=== PATIENT | female | born 1965 | race Two or more races ===

== ENCOUNTER 2019-12-30 | Emergency (ER) | payer OTHER | END 2019-12-31 00:07 | disposition home or self-care (01) | CPT/HCPCS: 29515; 80306; 82075; 99284 ==

== ENCOUNTER 2020-01-02 23:01 | Inpatient (IN) | payer MEDICAID, OTHER ==
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
[2020-01-03 00:07] LABS: Amphetamine Screen,Urine Not Detected (NotDetected); Barbiturate Screen,Urine Not Detected (NotDetected); Benzodiazepines Screen,Urine Not Detected (NotDetected); Cocaine Screen,Urine Not Detected (NotDetected); Methadone Screen, Urine Not Detected (NotDetected); Opiate Screen,Urine Not Detected (NotDetected); Oxycodone Screen, Urine Not Detected (NotDetected); Phencyclidine Screen,Urine Not Detected (NotDetected); Tricyclic Antidepressant,Urine Not Detected (NotDetected); Urn Cannabinoid Scrn Detected (NotDetected)
[2020-01-03] MEDS ORDERED: MAGNESIUM HYDROXIDE 2,400 MG/10 ML CUP PO PRN (02:46)
[2020-01-03] MEDS ORDERED: ZIPRASIDONE 20 MG VIAL IM PRN (02:46)
[2020-01-03] MEDS ORDERED: MAG HYDROX/AL HYDROX/SIMETH 30 ML CUP PO PRN (02:46)
[2020-01-03] MEDS ORDERED: LORazepam 1 MG TAB PO PRN (02:46)
[2020-01-03] MEDS: ACETAMINOPHEN TAB 325 MG TAB PO PRN ×3 (05:03→20:48)
[2020-01-03 09:33] LABS: Basophils # (A) 0.1 k/uL (0-0.2); Basophils % (A) 1 %; Eosinophils # (A) 0.4 k/uL (0-0.7); Eosinophils % (A) 4 %; HCT 38.3 % (34.0-46.0); HGB 12.4 gm/dL (11.4-16.0); Lymphocytes % (A) 30 %; MCH 32.2 pg (25.0-35.0); MCHC 32.4 g/dL (31.0-37.0); MCV 99.4 fL (80.0-100.0); Mean Platelet Volume 7.7; Monocytes # (A) 0.5 k/uL (0-1.0); Monocytes % (A) 5 %; Neutrophils # (A) 5.8 k/uL (1.3-7.7); Neutrophils % (A) 58 %; Platelet Count 340 k/uL (150-450); RBC 3.85 m/uL (3.80-5.40); RDW 12.1 % (11.5-15.5)
[2020-01-03 09:42] LABS: Albumin 4.3 g/dL (3.5-5.0); Calcium 9.5 mg/dL (8.4-10.2); Potassium 4.6 mmol/L (3.5-5.1); Total Bilirubin 0.6 mg/dL (0.2-1.3); Total Protein 7.1 g/dL (6.3-8.2)
[2020-01-03] MEDS ORDERED: NICOTINE POLACRILEX 2 MG GUM BUCCAL PRN (10:41)
[2020-01-03] MEDS ORDERED: busPIRone HCl 5 MG TAB PO PRN (12:07)
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
[2020-01-03] MEDS: FLUoxetine HCL 20 MG CAP PO SCH (12:20)
--- NOTE | 2020-01-03 20:11 | P.CONS ---
History of Present Illness - Reason for Consult Consult date: 01/03/20 - History of Present Illness The patient is a 54-year-old female with a PMH of recent right ankle fracture and anxiety who presented to the ED with depression and suicidal ideation. The patient was evaluated by psychiatry and was subsequently admitted to the mental health unit where she was seen at the bedside. Patient notes that she continues to have right foot pain, and has no way of seeing orthopedic surgery as an o utpatient. She has been unable to ambulate due to the pain and has been getting around via wheelchair recently. She denied any additional complaints. She denied chest pain, shortness of breath, fever, chills, recent travel, sick contact us, nausea, or vomiting. She underwent an extensive evaluation in the emergency room with laboratory evaluation showing a WBC count of 10.0, hemoglobin 12.4, platelets 340, sodium 140, potassium 4.6, BUN 20, creatinine 0.87, urine toxicology positive for marijuana, LDL 136, AST 69. Review of Systems Pertinent positives and negatives as discussed in HPI, a complete review of systems was performed and all other systems are negative. Past Medical History Past Medical History: No Reported History History of Any Multi-Drug Resistant Organisms: None Reported Past Surgical History: No Surgical Hx Reported Smoking Status: Current every day smoker Medications and Allergies Home Medications Medication Instructions Recorded Confirmed Type hydrOXYzine PAMOATE [Vistaril] 25 mg PO BID #10 capsule 12/30/19 Rx Allergies Allergy/AdvReac Type Severity Reaction Status Date / Time No Known Allergies Allergy Verified 01/03/20 04:28 Physical Exam Vitals: Vital Signs Temp Pulse Pulse Resp BP BP Pulse Ox 01/03/20 05:16 98.5 F 90 16 132/74 01/03/20 03:26 97.5 F L 84 16 148/79 01/03/20 01:44 98.3 F 84 18 119/73 100 01/02/20 23:07 98.2 F 103 H 18 150/83 98 Intake and Output 01/03/20 01/03/20 01/03/20 06:59 14:59 22:59 Other: Weight 44.452 kg 44.452 kg General: non toxic, no distress, appears at stated age, frail Derm: no unusual rashes/lesions no unusual ecchymoses, warm, dry Head: atraumatic, normocephalic, symmetric Eyes: EOMI, no lid lag, anicteric sclera, pupils equal round reactive to light ENT: Nose and ears atraumatic, no thrush, no pharyngeal erythema Neck: No thyromegaly, no cervical lymphadenopathy, trachea midline, supple Mouth: no lip lesion, mucus membranes moist Cardiovascular: S1S2 reg, no murmur, positive posterior tibial pulse bilateral, no edema, capillary refill less than 2 seconds Lungs: CTA bilateral, no rhonchi, no rales , no accessory muscle use Abdominal: soft, nontender to palpation, no guarding, no appreciable organomegaly, normal bowel sounds Ext: Right ankle swelling with tenderness to palpation and limited range of motion, no gross muscle atrophy, muscle strength 5 out of 5 in all 4 extremities grossly except for right distal lower extremity due to pain, no contractures, Neuro: CN II-XI grossly intact, light touch intact all 4 extremities, finger to nose within normal limits, Psych: Alert, oriented, appropriate affect Results CBC & Chem 7: 01/03/20 08:23 01/03/20 08:23 Labs: Abnormal Lab Results - Last 24 Hours (Table) 01/02/20 01/03/20 Range/Units 23:19 08:23 BUN 20 H (7-17) mg/dL Glucose 100 H (74-99) mg/dL AST 69 H (14-36) U/L Cholesterol 207 H (<200) mg/dL LDL Cholesterol, Calc 136 H (0-99) mg/dL U Marijuana (THC) Screen Detected H (NotDetected) Assessment and Plan Plan: Right ankle fracture, nondisplaced as per previous imaging -Consult orthopedic surgery -Nonweightbearing for now Depression with suicidal ideation -As per psychiatry Thank you for allowing us to participate in the care of this patient. We will follow peripherally. Do not hesitate to contact us with questions. Someone can be reached from the [facility] hospitalist group at all hours of the day at [phone].
[2020-01-03] MEDS: OLANZapine 5 MG TAB PO SCH (20:47)
[2020-01-04] MEDS: FLUoxetine HCL 20 MG CAP PO SCH (09:13)
[2020-01-04] MEDS: ACETAMINOPHEN TAB 325 MG TAB PO PRN ×3 (09:13→20:52)
--- NOTE | 2020-01-04 10:48 | P.CNOR ---
History of Present Illness - [facility] Consult date: 01/04/20 Consult reason: fracture History of present illness: Patient is a pleasant 54-year-old female seen at bedside this morning in consultation for a right calcaneus fracture. She was previously seen in the ED on 12/30/2019 where X-rays showed a non-displaced right calcaneus fracture. She was given a walking boot, instructed to be nonweightbearing and was advised to follow up with [facility]. She was unable to follow up as an outpatient. She continues to have heel pain as expected but states that it is i mproved. She has no numbness, tingling, calf pain, fever, chills, chest pain, shortness of breath or other. Review of Systems All systems: negative Constitutional: Denies chills, Denies fever Eyes: denies blurred vision, denies pain Ears, nose, mouth and throat: Denies headache, Denies sore throat Cardiovascular: Denies chest pain, Denies shortness of breath Respiratory: Denies cough Gastrointestinal: Denies abdominal pain, Denies diarrhea, Denies nausea, Denies vomiting Genitourinary: Denies dysuria, Denies hematuria Musculoskeletal: Denies myalgias Integumentary: Denies pruritus, Denies rash Neurological: Denies numbness, Denies weakness Psychiatric: Denies anxiety, Denies depression Endocrine: Denies fatigue, Denies weight change Past Medical History Past Medical History: No Reported History History of Any Multi-Drug Resistant Organisms: None Reported Past Surgical History: No Surgical Hx Reported Smoking Status: Current every day smoker Medications and Allergies Home Medications Medication Instructions Recorded Confirmed Type hydrOXYzine PAMOATE [Vistaril] 25 mg PO BID #10 capsule 12/30/19 Rx Allergies Allergy/AdvReac Type Severity Reaction Status Date / Time No Known Allergies Allergy Verified 01/03/20 04:28 Physical Examination Inspection of the right lower extremity and foot shows no deformity. No wounds. There is diffuse echymoses about the right foot as expected. There is mild to moderate edema as expected. There is tenderness at the plantar aspect of the heel. She has full active range of motion of the ankle, foot and toes. There is no tenderness at the medial or lateral malleolus. No tenderness at the foot. It is not overly hot to touch. Motor and sensation intact throughout the right lower extremity, foot and toes. 2+ DP pulse and less than 2 sec cap refill present. Results - Labs Labs: H & H 01/03/20 Range/Units 08:23 Hgb 12.4 (11.4-16.0) gm/dL Hct 38.3 (34.0-46.0) % Result Diagrams: 01/03/20 08:23 01/03/20 08:23 - Diagnostic results Ankle/Foot x-ray: report reviewed, image reviewed Assessment and Plan (1) Right calcaneal fracture Narrative/Plan: There are no plans for surgical intervention. She may continue with walking boot already prescribed while ambulating where she is nonweightbearing. Continue to elevate and apply ice to heel. Pain management per primary team. She may follow up as an outpatient in one week. Thank you. Current Visit: No Status: Acute Priority: Medium Code(s): S92.001A - UNSP FRACTURE OF RIGHT CALCANEUS, INIT FOR CLOS FX SNOMED Code(s): 573708572 Time with Patient: Less than 30
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
[2020-01-04] MEDS: busPIRone HCl 10 MG TAB PO SCH ×2 (11:59→20:52)
[2020-01-04] MEDS: OLANZapine 5 MG TAB PO SCH (20:52)
[2020-01-05] MEDS ORDERED: MELATONIN 5 MG TABLET PO ONE (03:08)
[2020-01-05] MEDS: busPIRone HCl 10 MG TAB PO SCH ×2 (08:35→21:46)
[2020-01-05] MEDS: ACETAMINOPHEN TAB 325 MG TAB PO PRN (08:36)
[2020-01-05] MEDS: FLUoxetine HCL 10 MG CAP PO SCH (08:36)
--- NOTE | 2020-01-05 12:37 | P.PN ---
Progress Note - Text Interval history: The patient is found in the [facility] she follows me to an interview room. She indicates that she is feeling better than when she was admitted. She still has feelings of depression and anxiety. She is concerned that everyone will get this Marks virus and will from it. We processed that further and some education was provided. She states that she does have some foot pain still but it is manageable. She has been attending groups. She describes having some difficulty sleeping last night which may have been due to disturbances on the unit. He states that since she's been here she's been experiencing a no weighs in her ear that she thinks is related to the psychotropic medication. Mental status exam: The patient is alert she seated in a wheelchair she is thin she has appropriate eye contact hygiene grooming adequate. Speech is fluent spontaneous nonpressured. She is reporting no suicidal ideation intent or plan she is reporting no auditory or visual hallucinations but states that she is experiencing this hissing or buzzing-type noise in her ear. Affect is constricted. She demonstrates no verbal or physical aggressiveness she demonstrates no involuntary repetitive movements. She is cooperative and easily directed in the session. Plan: The patient will continue on her current psychotropic medications. We will continue to follow any complaint of side effect. We will monitor her for sleep and participation in the milieu. Vital signs reviewed. She requires continued psychiatric hospitalization.
[2020-01-05] MEDS: OLANZapine 5 MG TAB PO SCH (21:46)
[2020-01-06] MEDS: busPIRone HCl 10 MG TAB PO SCH ×2 (08:33→21:34)
[2020-01-06] MEDS: FLUoxetine HCL 10 MG CAP PO SCH (08:34)
--- NOTE | 2020-01-06 10:40 | P.PN ---
Progress Note - Text Interval history: The patient is found in the [facility] she follows me to an interview room. She indicates that she feels stressed and anxious today. He states that she is glad that there is a Marks virus sweeping across the world. She states that nobody pays attention to family any more and that everybody needs to be home quarantine. She states she would shut down the whole world if she could. She spent several minutes discussing her situation at home and the frustration that she has with her . She has no questions or concerns regarding her medication. She reportedly slept approxi-4 hours last evening. She does not spontaneously describe any auditory hallucination. She indicates that she is eating and attending groups. Mental status exam: The patient is a Greek [place] female appearing her stated age. She is mobile with a wheelchair she has a boot on her right foot. She reports feeling stressed and anxious. She has feelings of anger. She is verbose she goes on discussing her situation at home for several minutes before she was interrupted. She is directable she is cooperative. She reports having suicidal thoughts off and on including today. She reports no homicidal ideation intent or plan. She is endorsing no auditory or visual hallucinations or any specific delusions. She demonstrates no verbal or physical aggressiveness she demonstrates no involuntary repetitive movements. Insight and judgment limited. Plan: The patient will continue on her current psychotropic medication. She is encouraged to continue ventilating her concerns throughout the day to staff. She indicated that she does feel better when she is able to discuss her concerns with others. She indicates that she has no one to talk to at home regarding her concerns. We will monitor her for safety she is encouraged to continue participating the milieu. Vital signs reviewed. She requires continued psychiatric hospitalization.
[2020-01-06] MEDS: OLANZapine 5 MG TAB PO SCH (21:34)
[2020-01-07] MEDS: busPIRone HCl 10 MG TAB PO SCH ×2 (09:01→21:27)
[2020-01-07] MEDS: FLUoxetine HCL 10 MG CAP PO SCH (09:01)
[2020-01-07] MEDS ORDERED: MELATONIN 3 MG TABLET PO PRN (10:18)
--- NOTE | 2020-01-07 10:23 | P.PN ---
Progress Note - Text Progress Note Date: 01/07/20 Interval History: Patient was seen attending groups this morning and was directable and agreeable to speak with comic writer in the office. Patient claims that her mood is still "up and down" and claims that she only has been sleeping 4 hours on the unit. Patient was demanding to have her medication increased and to possibly be started on trazodone. She went on to complain about her having poor sleep at home and states that she loves him however she is getting annoyed that she cannot sleep. She states that she is trying to go to groups and participate as best as she can. She stated that she is mildly improving overall since being in the hospital. She continues to speak about her stressors which are making her "mind to race". She states about her is very controlling and has been playing games with her. She continues to have anxiety at this time however this has been improving mildly. She is having a fair appetite. At this time patient denies any suicidal or homical ideations, intent or plan. Patient denies any auditory, visual hallucinations and denies any paranoia or delusions. Patient denies any side effects from the medications and has been compliant with meds. Patient claims that Tylenol has not been helping her pain and making her ears ringing. Mental Status Exam: General Appearance: Patient appears to be thin, short in stature, older than stated age is alert, more directable today and attempts to cooperate. Patient appears to have improving hygiene and grooming. Behavior: Patient is seated without any agitated behavior. Attempts to cooperate Speech: Patient's speech is difficult to comprehend times, [place] accent Mood/Affect: Patient reports their mood is depressed and anxious, affect is congruent and constricted. Suicidality/Homicidality: Patient denies having any homicidal ideation intent or plan. Denies any suicidal ideations, no intent or plan. Perceptions: Patient denies any visual hallucinations and denies any auditory hallucinations Though content/process: There is no evidence of any delusional thought content and thought process is linear and goal-directed. Memory and concentration: AOX3, grossly intact for the purposes of this session. Can spell "WORLD" backwards Judgment and insight: poor, mildly improving Assessment Bipolar depression Cannabis use disorder Nicotine dependence Plan: -Patient continues to meet criteria for inpatient psychiatric admission for symptom stabilization and safety. Patient has signed adult voluntary form and medication consent and was placed in patient's chart. -Medications: Increased Zyprexa 7.5 mg nightly for insomnia/mood stabilization, increased Prozac to 40 mg daily for mood. BuSpar continue with 10 mg twice a day when necessary for anxiety. I added melatonin 3 mg daily at bedtime when necessary for sleep. -When necessary Geodon for agitation/aggression. -Orthopedic consult on 01/03/2020 patient recommendations, suggested no surgical intervention at this time and the patient elevate rest and ice her foot and to follow-up as an outpatient. Switch Tylenol for Motrin when necessary for pain. -NRT -Nicorette gum -SW on board for discharge planning. Encouraged the patient to participate in milieu. Likely discharge in 2-3 days.
[2020-01-07] MEDS ORDERED: OLANZapine 2.5 MG TAB PO SCH (21:00)
[2020-01-08] MEDS: FLUoxetine HCL 20 MG CAP PO SCH (08:52)
[2020-01-08] MEDS: busPIRone HCl 10 MG TAB PO SCH ×2 (08:52→20:45)
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
[2020-01-08] MEDS: MELATONIN 3 MG TABLET PO SCH (20:45)
[2020-01-08] MEDS: IBUPROFEN 600 MG TAB PO PRN (20:45)
[2020-01-08] MEDS ORDERED: OLANZapine 10 MG TAB PO SCH (21:00)
[2020-01-09] MEDS: IBUPROFEN 600 MG TAB PO PRN ×2 (08:30→20:56)
[2020-01-09] MEDS: FLUoxetine HCL 20 MG CAP PO SCH (08:30)
[2020-01-09] MEDS: busPIRone HCl 10 MG TAB PO SCH ×2 (08:30→20:54)
--- NOTE | 2020-01-09 10:40 | XR ---
EXAMINATION TYPE: XR foot complete RT DATE OF EXAM: 01/09/2020 COMPARISON: 12/30/2019 HISTORY: 54-year-old female follow-up calcaneus fracture TECHNIQUE: 3 views FINDINGS: Os peroneum. Stable tiny density medial aspect of the third MTP joint questionable clinical significance. Redemonstrated fracture of the posterior calcaneus. Boehler's angle is overall maintained though ther e may be slight interval flattening at the origin of the plantar fascia at the site of a plantar calc aneal heel spur. . IMPRESSION: Posterior calcaneal fracture redemonstrated. Overall Bohler's angle is maintained. There may be minim al interval flattening of bone at the origin of the plantar fascia as compared to 12/30/2019.
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
[2020-01-09] MEDS ORDERED: OLANZapine 5 MG TAB PO SCH (14:30)
[2020-01-09] MEDS: OLANZapine 5 MG TAB PO SCH (20:54)
[2020-01-09] MEDS: MELATONIN 3 MG TABLET PO SCH (20:54)
[2020-01-10] MEDS: busPIRone HCl 10 MG TAB PO SCH ×2 (08:48→20:50)
[2020-01-10] MEDS: FLUoxetine HCL 20 MG CAP PO SCH (08:48)
[2020-01-10] MEDS: IBUPROFEN 600 MG TAB PO PRN (08:49)
[2020-01-10 09:51] VITALS: BMI 18.1
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
[2020-01-10] MEDS: MELATONIN 3 MG TABLET PO SCH (20:50)
[2020-01-10] MEDS: OLANZapine 5 MG TAB PO SCH (20:50)
[2020-01-11] MEDS: busPIRone HCl 10 MG TAB PO SCH ×2 (08:32→21:34)
[2020-01-11] MEDS: FLUoxetine HCL 20 MG CAP PO SCH (08:33)
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
[2020-01-11] MEDS ORDERED: diphenhydrAMINE 50 MG CAP PO ONE (16:49)
[2020-01-11] MEDS: traZODone HCL 50 MG TAB PO SCH (21:35)
[2020-01-11] MEDS: MELATONIN 3 MG TABLET PO SCH (21:35)
[2020-01-11] MEDS: OLANZapine 5 MG TAB PO SCH (21:35)
[2020-01-12] MEDS: FLUoxetine HCL 20 MG CAP PO SCH (08:21)
[2020-01-12] MEDS: busPIRone HCl 10 MG TAB PO SCH (08:21)
[2020-01-12] MEDS ORDERED: HYDROCORTISONE 1% CREAM 30 GM TUBE TOPICAL PRN (09:02)
[2020-01-12] MEDS: HYDROCORTISONE 1% CREAM 30 GM TUBE TOPICAL PRN ×2 (12:03→21:48)
--- NOTE | 2020-01-12 12:13 | P.PN ---
Subjective Progress Note Date: 01/12/20 Principal diagnosis: Bipolar depression, Cannabis use disorder, Nicotine dependence I reviewed the medical record and interviewed the patient in the [facility]. She was sitting comfortably in her wheelchair. Her primary complaint was redness and swelling of her right forearm. Nursing called me last night because the rash appeared to have extended along her forearm. She obtained moderate relief with 50 mg Benadryl. We discussed treatment options and agreed to a trial of cortisone cream for a place to consult with medicine. She continues to feel depressed related to multiple psychosocial stressors but denied current suicidal intent or plan. She is sleeping 5-7 hours per night and intermittently attends therapeutic groups and activities. Objective - Vital Signs Vital signs: Vital Signs Temp 98.2 F 01/12/20 06:08 Pulse 75 01/12/20 06:08 Resp 14 01/12/20 06:08 BP 129/69 01/12/20 06:08 Pulse Ox 98 01/10/20 18:38 - Exam She presented as a thin and frail-appearing [place] woman who was sitting Up in a wheelchair. She had a boot on her left leg. She made eye contact and attended to the interview. She had slight swelling and erythema of her right forearm. She had a blunted facial expression. She showed some psychomotor retardation but no abnormal movements. Her speech was spontaneous with normal rate, rhythm and volume. Her affect was depressed and unreactive. She denied suicidal ideation or wishes. She did not express feelings of hopelessness, helplessness or worthlessness. She did not express ideas reference, paranoid ideation or delusion. Her thinking was abstract and associations were coherent and logical. She denied hallucinations did not appear to be responding to internal stimuli. - Labs CBC & Chem 7: 01/03/20 08:23 01/03/20 08:23 Assessment and Plan Assessment: She appears moderately mentally ill and mildly to moderately improve from admission. She has what appears to be a allergic-type rash to her right fore arm. Plan: Continue inpatient hospitalization. Continue trazodone 50 mg at bedtime, Zyprexa 15 mg nightly, Prozac 40 mg daily and BuSpar 10 mg twice a day for anxiety. Continue melatonin 3 mg at bedtime for sleep. 1% hydrocortisone cream to her right forearm twice a day when necessary. Continue nicotine replacement therapy. Encourage participation in therapeutic groups and activities. Evaluate clinical status response to treatment daily basis.
[2020-01-12] MEDS: diphenhydrAMINE 50 MG CAP PO PRN ×2 (13:00→21:47)
[2020-01-12] MEDS: traZODone HCL 50 MG TAB PO SCH (20:42)
[2020-01-12] MEDS: MELATONIN 3 MG TABLET PO SCH (20:42)
[2020-01-12] MEDS: OLANZapine 5 MG TAB PO SCH (20:42)
[2020-01-13] MEDS: FLUoxetine HCL 20 MG CAP PO SCH (08:18)
[2020-01-13] MEDS: HYDROCORTISONE 1% CREAM 30 GM TUBE TOPICAL PRN (08:19)
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
[2020-01-13] MEDS: traZODone HCL 50 MG TAB PO SCH (20:54)
[2020-01-13] MEDS: OLANZapine 5 MG TAB PO SCH (20:54)
[2020-01-13] MEDS: MELATONIN 3 MG TABLET PO SCH (20:54)
[2020-01-14] MEDS: FLUoxetine HCL 20 MG CAP PO SCH (08:29)
[2020-01-14] MEDS ORDERED: FLUoxetine HCL 20 MG CAP PO STA (10:21)
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
[2020-01-14] MEDS: IBUPROFEN 600 MG TAB PO PRN (15:40)
[2020-01-14] MEDS: OLANZapine 5 MG TAB PO SCH (20:35)
[2020-01-14] MEDS: traZODone HCL 50 MG TAB PO SCH (20:36)
[2020-01-14] MEDS: MELATONIN 3 MG TABLET PO SCH (20:36)
[2020-01-14] MEDS: HYDROCORTISONE 1% CREAM 30 GM TUBE TOPICAL PRN (21:28)
[2020-01-15] MEDS: IBUPROFEN 600 MG TAB PO PRN (08:18)
[2020-01-15] MEDS: FLUoxetine HCL 20 MG CAP PO SCH (08:21)
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
[2020-01-15] MEDS: OLANZapine 5 MG TAB PO SCH (21:14)
[2020-01-15] MEDS: traZODone HCL 50 MG TAB PO SCH (21:14)
[2020-01-15] MEDS: MELATONIN 3 MG TABLET PO SCH (21:14)
[2020-01-15 21:16] VITALS: RESP 18
[2020-01-16 07:03] VITALS: BP 122/62; PULSE 118; TEMP 98.4
[2020-01-16] MEDS: FLUoxetine HCL 20 MG CAP PO SCH (08:44)
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
[2020-01-16] MEDS: IBUPROFEN 600 MG TAB PO PRN (10:52)
== END 2020-01-16 14:02 | disposition home or self-care (01) | DRG 885 ==
LOC: EC 23:01 → 3MHU 01-03 01:35
PROVIDERS: ADMIT Psychiatry & Neurology Psychiatry; ATTEND Psychiatry & Neurology Psychiatry
DX: F32.3 Major depressive disorder, single episode, severe with psychotic features (principal); R45.851 Suicidal ideations; F41.9 Anxiety disorder, unspecified; G47.00 Insomnia, unspecified; F12.10 Cannabis abuse, uncomplicated; S92.001A Unspecified fracture of right calcaneus, initial encounter for closed fracture; R21 Rash and other nonspecific skin eruption; F17.210 Nicotine dependence, cigarettes, uncomplicated; Z71.6 Tobacco abuse counseling; Z79.899 Other long term (current) drug therapy; Z59.9 Problem related to housing and economic circumstances, unspecified; Z65.3 Problems related to other legal circumstances
CPT/HCPCS: 80053; 80061; 80306; 82075; 83036; 84443; 85025; 99285